=== PATIENT | female | born 1990 | race American Indian/Alaskan Native ===

== ENCOUNTER 2019-01-01 17:10 | Emergency (ER) | payer OTHER ==
[2019-01-01 19:35] LABS: Bacteria,Urine 1+ /HPF (Negative); Bilirubin,Urine NEG (Negative); Blood,Urine NEG (Negative); Color,Urine Straw (Yellow); Protein,Urine <15 mg/dL mg/dL (Negative)
--- NOTE | 2019-01-01 19:37 | Emergency Department Report ---
Chief Complaint: Abdominal Pain Stated Complaint: BACK PAIN/STOMACH PAIN Time Seen by Provider: 01/01/19 19:33 - HPI History of Present Illness: pt has upper abdominal pain that began a week ago bilateral back pain no dysuria no fever no N/V/D had a BM today has not taken anything LNMP 12/16/18 MSE screening note: Focused history and physical exam performed. ED Disposition for MSE Condition: Stable Instructions: Abdominal Pain (ED)
[2019-01-01 19:38] VITALS: BP 117/85
[2019-01-01 19:39] LABS: HCG Qualitative,Urine Negative (Negative)
[2019-01-01 20:24] LABS: Basophils % (Auto) 0.3 % (0.0-1.8); Eosinophils % (Auto) 0.1 % (0.0-4.3); Hematocrit 34.2 % (30.3-42.9); Hemoglobin 11.2 gm/dl (10.1-14.3); Lymphocytes # (Auto) 1.6 K/mm3 (1.2-5.4); Mean Corpuscular HGB Conc 33 % (30-34); Mean Corpuscular Volume 86 fl (79-97); Monocytes # (Auto) 0.5 K/mm3 (0.0-0.8); Monocytes % (Auto) 5.6 % (0.0-7.3); Platelet Count 260 K/mm3 (140-440); Red Blood Count 3.99 M/mm3 (3.65-5.03); Red Cell Distribution Width 14.2 % (13.2-15.2)
--- NOTE | 2019-01-01 21:32 | Emergency Department Report ---
ED Female HPI - General Chief complaint: Abdominal Pain Stated complaint: BACK PAIN/STOMACH PAIN Time Seen by Provider: 01/01/19 19:33 Source: patient Mode of arrival: Ambulatory Limitations: No Limitations - History of Present Illness Initial comments: Patient is a 28-year-old female with a history of HSV genita excessive vaginal discharge and abdominal pain past 2 weeks status is outbreak requesting check for or STD , there is no nausea vomiting no fever chills last contact was 2 weeks ago last menstrual cycle one week ago MD Complaint: vaginal discharge, pelvic pain Onset/Timin -: week(s) Location: labia, perineum Radiation: non-radiating Severity: moderate Severity scale (0 -10): 4 Quality: cramping, sharp Consistency: constant Improves with: movement Worsens with: none Are you Now?: No Last Menstrual Period: 12/19/18 EDC: 09/25/19 Associated Symptoms: vaginal discharge - Related Data Sexually active: Yes : 2 Para: 2 A: 0 Previous Rx's Medication Instructions Recorded Last Taken Type Doxycycline [Vibramycin CAP] 100 mg PO BID 10 Days #20 capsule 01/01/19 Unknown Rx Valacyclovir HCl [Valtrex] 1,000 mg PO BID 10 Days #20 tab 01/01/19 Unknown Rx Allergies Allergy/AdvReac Type Severity Reaction Status Date / Time No Known Allergies Allergy Unverified 01/01/19 17:12 ED Review of Systems ROS: Stated complaint: BACK PAIN/STOMACH PAIN Other details as noted in HPI Constitutional: denies: chills, fever Eyes: denies: eye pain, eye discharge, vision change ENT: denies: ear pain, throat pain Respiratory: denies: cough, shortness of breath, wheezing Cardiovascular: denies: chest pain, palpitations Endocrine: no symptoms reported Gastrointestinal: denies: abdominal pain, nausea, diarrhea Genitourinary: dyspareunia. denies: urgency, dysuria, frequency, hematuria, discharge Musculoskeletal: denies: back pain, joint swelling, arthralgia Skin: denies: rash, lesions Neurological: denies: headache, weakness, paresthesias Psychiatric: denies: anxiety, depression Hematological/Lymphatic: denies: easy bleeding, easy bruising ED Past Medical Hx - Social History Smoking Status: Never Smoker Substance Use Type: Alcohol - Medications Home Medications: Home Medications Medication Instructions Recorded Confirmed Last Taken Type Doxycycline [Vibramycin CAP] 100 mg PO BID 10 Days #20 capsule 01/01/19 Unknown Rx Valacyclovir HCl [Valtrex] 1,000 mg PO BID 10 Days #20 tab 01/01/19 Unknown Rx ED Physical Exam - General Limitations: No Limitations General appearance: alert, in no apparent distress - Head Head exam: Present: atraumatic, normocephalic - Eye Eye exam: Present: normal appearance, PERRL, EOMI Pupils: Present: normal accommodation - ENT ENT exam: Present: mucous membranes moist - Neck Neck exam: Present: normal inspection, full ROM. Absent: lymphadenopathy, thyromegaly - Respiratory Respiratory exam: Present: normal lung sounds bilaterally. Absent: respiratory distress, wheezes, stridor, chest wall tenderness - Cardiovascular Cardiovascular Exam: Present: regular rate, normal rhythm, normal heart sounds. Absent: systolic murmur, diastolic murmur, rubs, gallop - GI/Abdominal GI/Abdominal exam: Present: soft, normal bowel sounds. Absent: distended, tenderness, guarding, rebound, bruit, hernia - Rectal Rectal exam: Present: deferred - External exam: Present: erythema. Absent: lesions, lacerations, ecchymosis, bleeding Speculum exam: Present: erythema, vaginal discharge (green yellow ). Absent: cervical discharge, vaginal bleeding, foreign body, tissue, laceration Bi-manual exam: Present: cervical motion tendernes - Extremities Exam Extremities exam: Present: normal inspection - Back Exam Back exam: Present: normal inspection, full ROM. Absent: tenderness, CVA tenderness (R), CVA tenderness (L), muscle spasm, paraspinal tenderness, vertebral tenderness, rash noted - Neurological Exam Neurological exam: Present: alert, oriented X3, CN II-XII intact, normal gait, reflexes normal - Psychiatric Psychiatric exam: Present: normal affect, normal mood - Skin Skin exam: Present: warm, dry, intact, normal color. Absent: rash ED Course Vital Signs 01/01/19 19:33 Temperature 98.7 F Pulse Rate 112 H Respiratory 16 Rate Blood Pressure 117/85 O2 Sat by Pulse 100 Oximetry ED Medical Decision Making - Lab Data Result diagrams: 01/01/19 19:48 Labs 01/01/19 01/01/19 18:27 19:48 WBC 9.0 RBC 3.99 Hgb 11.2 Hct 34.2 MCV 86 MCH 28 MCHC 33 RDW 14.2 Plt Count 260 Lymph % (Auto) 18.0 Bullock % (Auto) 5.6 Eos % (Auto) 0.1 Baso % (Auto) 0.3 Lymph # 1.6 Bullock # 0.5 Eos # 0.0 Baso # 0.0 Seg Neutrophils % 76.0 H Seg Neutrophils # 6.8 Urine Color Straw Urine Turbidity Clear Urine pH 7.0 Ur Specific Ashley 1.004 Urine Protein <15 mg/dl Urine Glucose (UA) Neg Urine Ketones Neg Urine Blood Neg Urine Nitrite Neg Urine Bilirubin Neg Urine Urobilinogen 4.0 Ur Leukocyte Esterase Sm Urine WBC (Auto) 1.0 Urine RBC (Auto) 1.0 U Epithel Cells (Auto) 3.0 Urine Bacteria (Auto) 1+ Urine HCG, Qual Negative - Medical Decision Making vaginal exam consistent with STD CMT plan, rocephin, azithromycin, flagyl, dc to home with doxycycline and valtrax, to cover PID and HSV outbreak pt will follow up with [facility] and [facility] [facility] given referral to both pt verbalized agreement and understanding of same. Critical care attestation.: If time is entered above; I have spent that time in minutes in the direct care of this critically ill patient, excluding procedure time. ED Disposition Clinical Impression: STD (female), PID (pelvic inflammatory disease) Genital HSV Qualifiers: Herpes simplex infection site: vulvovaginitis Qualified Code(s): A60.04 - Herpesviral vulvovaginitis Disposition: DC-01 TO HOME OR SELFCARE Is pt being admited?: No Does the pt Need Aspirin: No Condition: Stable Instructions: Abdominal Pain (ED) Prescriptions: Valacyclovir HCl [Valtrex] 1,000 mg PO BID 10 Days #20 tab Doxycycline [Vibramycin CAP] 100 mg PO BID 10 Days #20 capsule Referrals: PRIMARY CARE, [Primary Care Provider] - 3-5 Days Forms: Work/School Release Form(ED) Time of Disposition: 22:04
[2019-01-01] MEDS ORDERED: XYLOCAINE 1% MPF 5 mL INFILTRATI ONE (21:57)
[2019-01-01] MEDS ORDERED: ZITHROMAX PO ONE (21:57)
[2019-01-01] MEDS ORDERED: ROCEPHIN IM ONE (21:57)
[2019-01-01] MEDS ORDERED: FLAGYL PO ONE (21:57)
[2019-01-01 22:17] LABS: Alanine Aminotransferase 7 units/L (7-56); Albumin 4.4 g/dL (3.9-5); BUN/Creatinine Ratio 14; Blood Urea Nitrogen 7 mg/dL (7-17); Calcium 9.8 mg/dL (8.4-10.2); Hemolysis Index 1
== END 2019-01-01 22:56 | disposition home or self-care (01) ==
LOC: ED 17:10
DX: N73.9 Female pelvic inflammatory disease, unspecified (principal); A64 Unspecified sexually transmitted disease
CPT/HCPCS: 36415; 80053; 81001; 81025; 83690; 85025; 87210; 87591; 96372; 99284; J0696